=== PATIENT | female | born 1990 | race American Indian/Alaskan Native ===

== ENCOUNTER 2018-08-15 06:20 | Emergency (ER) | payer OTHER ==
[2018-08-15] MEDS ORDERED: TYLENOL PO ONE (06:45)
[2018-08-15] MEDS ORDERED: TYLENOL ONE (06:49)
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
[2018-08-15] MEDS ORDERED: NACL 0.9% 1000 ML 1,000 ML IV ONE (09:02)
[2018-08-15] MEDS ORDERED: TORADOL IV ONE (09:02)
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
[2018-08-15 09:12] LABS: Hematocrit 35.5 % (30.3-42.9); Hemoglobin 12.3 gm/dl (10.1-14.3); Mean Corpuscular HGB Conc 35 % (30-34); Mean Corpuscular Volume 86 fl (79-97); Platelet Count 358 K/mm3 (140-440); Red Blood Count 4.14 M/mm3 (3.65-5.03)
[2018-08-15 09:16] LABS: Bacteria,Urine 1+ /HPF (Negative); Bilirubin,Urine NEG (Negative); Blood,Urine SM (Negative); Color,Urine Straw (Yellow); Hyaline Casts,Urine 1 /LPF; Protein,Urine <15 mg/dL mg/dL (Negative); Urobilinogen,Urine < 2.0 mg/dL (<2.0)
[2018-08-15 09:17] LABS: HCG Qualitative,Urine Negative (Negative)
[2018-08-15 09:27] LABS: BUN/Creatinine Ratio 22; Blood Urea Nitrogen 11 mg/dL (7-17); Hemolysis Index 9
[2018-08-15] MEDS ORDERED: ULTRAM PO ONE (10:23)
[2018-08-15] MEDS ORDERED: ULTRAM ONE (10:26)
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
[2018-08-15 13:06] VITALS: BP 106/66
== END 2018-08-15 12:45 | disposition home or self-care (01) ==
LOC: ED 06:20
DX: S93.402A Sprain of unspecified ligament of left ankle, initial encounter (principal); S16.1XXA Strain of muscle, fascia and tendon at neck level, initial encounter; S39.012A Strain of muscle, fascia and tendon of lower back, initial encounter; R51 Headache; K21.9 Gastro-esophageal reflux disease without esophagitis; F43.10 Post-traumatic stress disorder, unspecified; J45.909 Unspecified asthma, uncomplicated; Z88.0 Allergy status to penicillin; V49.59XA Passenger injured in collision with other motor vehicles in traffic accident, initial encounter; Y93.89 Activity, other specified; Y92.410 Unspecified street and highway as the place of occurrence of the external cause; Y99.8 Other external cause status
CPT/HCPCS: 36415; 70450; 72100; 72125; 73610; 80048; 81001; 81025; 85027; 96374; 99285; G0480; J1885; J7030; 80320